=== PATIENT | female | born 1985 | race Hispanic/Latino ===

== ENCOUNTER 2022-06-24 06:29 | Emergency (ER) | payer SELFPAY ==
[~2022-06-24] VITALS: Ht 165.1 cm; Wt 131.5 kg
[2022-06-24] MEDS ORDERED: ONDANSETRON ODT4 MG PO (06:50)
== END 2022-06-24 07:06 | disposition home or self-care (01) ==
LOC: ER 06:38
DX: J02.0 Streptococcal pharyngitis (principal); R11.2 Nausea with vomiting, unspecified
CPT/HCPCS: 99282

== ENCOUNTER 2022-08-28 20:11 | Emergency (ER) | payer SELFPAY ==
[~2022-08-28] VITALS: Ht 165.1 cm; Wt 131.5 kg
[~2022-08-28 20:11] MED LIST: ONDANSETRON ODT4 MG PO
[2022-08-28] MEDS ORDERED: DEXAMETHASONE SOD PHOS 10 MG/1 ML VIAL IV ONE (20:15)
[2022-08-28] MEDS ORDERED: ACETAMINOPHEN 325 MG TAB PO ONE (20:15)
[2022-08-28 20:27] LABS: BASOPHILS % 0.2 % (0.0-1.0); EOSINOPHILS # (AUTO) 0.1 (0.0-0.4); EOSINOPHILS % 0.7 % (0.0-6.0); HEMATOCRIT 39.2 % (34.2-44.1); HEMOGLOBIN 11.4 g/dL (12.0-16.0); LYMPHOCYTES # (AUTO) 2.9 (1.0-3.2); LYMPHOCYTES % 27.9 % (18.0-39.1); MEAN CORPUSCULAR HEMOGLOBIN 26.2 pg (28-32); MEAN CORPUSCULAR HGB CONC 29.1 g/dL (31-35); MEAN CORPUSCULAR VOLUME 90.1 fL (81-99); MONOCYTES # (AUTO) 1.3 (0.2-0.8); MONOCYTES % 12.2 % (4.4-11.3); NEUTROPHILS # (AUTO) 6.2 (2.1-6.9); NEUTROPHILS % 58.8 % (38.7-80.0); PLATELET COUNT 337 x10e3/uL (140-360); RED BLOOD COUNT 4.35 x10e6/uL (3.6-5.1); RED CELL DISTRIBUTION WIDTH 13.9 % (11.7-14.4)
[2022-08-28 20:44] LABS: ANION GAP 13.5 mmol/L (8-16); CALCIUM 9.1 mg/dL (8.4-10.2); CREATININE, SERUM 0.64 mg/dL (0.57-1.11); POTASSIUM 3.5 mmol/L (3.5-5.1)
[2022-08-28] MEDS ORDERED: IOPAMIDOL 370 MG/ML 100 ML INFUS..BTL INJ ONE (21:07)
[2022-08-28] MEDS ORDERED: PENICILLIN G BENZATHINE LA 1.2 MU TBX IM STA (21:48)
[2022-08-28 21:55] VITALS: BP 124/88
[2022-08-28] MEDS ORDERED: PENICILLIN G BENZATHINE LA 1.2 MU TBX ONE (22:04)
== END 2022-08-28 22:26 | disposition home or self-care (01) ==
LOC: ER 20:14
DX: R50.9 Fever, unspecified (principal); J02.0 Streptococcal pharyngitis; G40.909 Epilepsy, unspecified, not intractable, without status epilepticus; Z98.84 Bariatric surgery status
CPT/HCPCS: 36415; 70491; 80048; 84702; 85025; 99283; J0561; J1100; Q9967

== ENCOUNTER 2022-11-13 15:31 | Emergency (ER) | payer SELFPAY ==
[~2022-11-13] VITALS: Ht 165.1 cm; Wt 131.5 kg
[2022-11-13] MEDS ORDERED: KETOROLAC TROMETHAMINE 30 MG/ML VIAL IV ONE (16:05)
[2022-11-13] MEDS ORDERED: SODIUM CHLORIDE 0.9% 1000ML 1,000 ML IV STA (16:05)
[2022-11-13 16:17] LABS: BASOPHILS % 0.1 % (0.0-1.0); EOSINOPHILS % 0.1 % (0.0-6.0); HEMATOCRIT 40.3 % (34.2-44.1); HEMOGLOBIN 11.6 g/dL (12.0-16.0); LYMPHOCYTES # (AUTO) 1.3 (1.0-3.2); LYMPHOCYTES % 6.1 % (18.0-39.1); MEAN CORPUSCULAR HEMOGLOBIN 25.7 pg (28-32); MEAN CORPUSCULAR HGB CONC 28.8 g/dL (31-35); MEAN CORPUSCULAR VOLUME 89.4 fL (81-99); MONOCYTES # (AUTO) 1.4 (0.2-0.8); MONOCYTES % 6.5 % (4.4-11.3); NEUTROPHILS # (AUTO) 18.2 (2.1-6.9); NEUTROPHILS % 86.8 % (38.7-80.0); PLATELET COUNT 344 x10e3/uL (140-360); RED BLOOD COUNT 4.51 x10e6/uL (3.6-5.1); RED CELL DISTRIBUTION WIDTH 14.6 % (11.7-14.4)
[2022-11-13 16:28] LABS: ALBUMIN 3.2 g/dL (3.5-5.0); ALBUMIN/GLOBULIN RATIO 0.8 (0.8-2.0); ANION GAP 9.9 mmol/L (8-16); CALCIUM 8.9 mg/dL (8.4-10.2); CREATININE, SERUM 0.67 mg/dL (0.57-1.11); POTASSIUM 3.9 mmol/L (3.5-5.1)
[2022-11-13] MEDS ORDERED: IOPAMIDOL 370 MG/ML 100 ML INFUS..BTL INJ ONE (17:49)
[2022-11-13] MEDS ORDERED: AMOX TR-K CLV1 EAC2 PO (18:47)
[2022-11-13] MEDS ORDERED: IBUPROFEN600 MG PO (18:47)
== END 2022-11-13 19:19 | disposition home or self-care (01) ==
LOC: ER 15:40
DX: R50.9 Fever, unspecified (principal); J18.9 Pneumonia, unspecified organism; J03.80 Acute tonsillitis due to other specified organisms; B96.89 Other specified bacterial agents as the cause of diseases classified elsewhere
CPT/HCPCS: 36415; 70491; 80053; 84702; 85025; 99284; J1885; J2543; J7030; Q9967